=== PATIENT | male | born 1990 | race Caucasian/White ===

== ENCOUNTER 2024-11-20 09:15 | Emergency (ER) | payer OTHER, SELFPAY ==
[2024-11-20 09:16] VITALS: BP 194/120
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
[2024-11-20 09:51] VITALS: BP 183/129; BMI 33.7
[2024-11-20] MEDS: NSS 1000 IV (09:56)
[2024-11-20] MEDS: REGLAN 10 MG IV (09:57)
[2024-11-20] MEDS: DECADRON 10 MG IV (09:58)
[2024-11-20] MEDS: MAGNESIUM SULFATE 50 IV (09:58)
[2024-11-20] MEDS: BENADRYL 25 MG IV (09:58)
[2024-11-20 10:04] LABS: % Basophils 0.4 % (0-2); % Eosinophils 1.4 % (0-6); % Immature Granulocytes 0.7 % (0-0.5); % Lymphocytes 16.5 % (20.5-51.1); % Monocytes 8.2 % (1.7-9.3); % Neutrophils 72.8 % (42.2-75.2); Absolute Eosinophils 0.1 10^3/uL (0-0.7); Absolute Immature Granulocytes 0.1 10^3/uL (0-0.05); Absolute Lymphocytes 1.6 10^3/uL (1.2-3.4); Absolute Monocytes 0.8 10^3/uL (0.1-0.6); Absolute Neutrophils 6.9 10^3/uL (1.4-6.5); Hematocrit 50.5 % (39.0-52.0); Hemoglobin 17.4 g/dL (13.0-18.0); Mean Corp Hgb Conc. 34.5 g/dL (33.0-37.0); Mean Corpuscular Hgb 35.3 pg (27.0-31.0); Mean Corpuscular Volume 102.4 fL (80.0-94.0); Mean Platelet Volume 9.9 fL (7.4-10.4); Nucleated Red Blood Cells % 0 % (-); Platelet Count 219 10^3/uL (130-400); Red Blood Cell Count 4.93 10^6/uL (4.70-6.10); Red Cell Dist. Width 11.9 % (11.5-14.5); White Blood Cell Count 9.5 10^3/uL (4.8-10.8)
[2024-11-20 10:31] LABS: ALT (SGPT) 266 U/L (0-50); AST (SGOT) 138 U/L (17-59); Alkaline Phosphatase 69 U/L (38-126); Blood Urea Nitrogen 11 mg/dl (9-20); Calcium 9.3 mg/dl (8.4-10.2); Carbon Dioxide 25 mmol/L (22-30); Chloride 101 mmol/L (98-107); Estimated Creatinine Clearance > 125 ml/min; Glucose 128 mg/dl (70-99); Potassium 4.9 mmol/L (3.5-5.1); Sodium 138 mmol/L (135-145); Total Bilirubin 1.2 mg/dl (0.2-1.3); eGFR > 60.00
[2024-11-20 11:23] VITALS: BP 167/102
[2024-11-20 12:12] LABS: Erythrocyte Sed Rate 13 mm/hour (0-20)
== END 2024-11-20 13:31 | disposition home or self-care (01) ==
LOC: EMR 09:15
PROVIDERS: Physician Assistant; EMERGENCY PHYSICIAN Student in an Organized Health Care Education/Training Program
DX: J01.20 Acute ethmoidal sinusitis, unspecified (principal); J01.10 Acute frontal sinusitis, unspecified; J01.00 Acute maxillary sinusitis, unspecified; F17.200 Nicotine dependence, unspecified, uncomplicated
CPT/HCPCS: 96365; 96375; 99284; 70450; 70496; 70498; 80053; 85025; 85652; 86140; Q9967